=== PATIENT | female | born 1985 | race Caucasian/White ===

== ENCOUNTER 2017-01-05 01:50 | Emergency (ER) | payer SELFPAY ==
[~2017-01-05 01:50] MED LIST: AMOXIL500 M1 PO; AMOXIL500 MG PO; AMOXIL875 MG PO; ANAPROX DS550 MG PO; ANTIBIOTIC; BACTRIM DS TABL1 TAB PO; BUSPIRONE HCL10 M2 PO; CARAFATE1 G PO; CIPRO500 MG PO; DARVOCET-N 1001 EACH PO; DIFLUCAN150 MG PO; GYNE-LOTRIMIN45 GM VG; H PO; IBUPROFEN; LEVAQUIN250 MG PO; MACROBID 100 M100 M1 PO; MACROBID 100 M100 MG PO; MACROBID100 MG/CAP PO; METROGEL-VAGINA70 GM VG; MIDRIN CAPSULE1 CAP PO; NO MEDICATIONS; NO MEDS; NORCO 5-325 TA1 EACH PO; NORCO 5/325 TAB1 TAB PO; NORCO 5/3251 TAB PO; PEN-VEE K500 MG PO; PEPCID20 MG PO; PERCOCET 5/3251 TAB PO; PHENERGAN25 M1 PO; PREDNISONE20 MG PO; PRENATAL1 TAB; PROVERA10 MG PO; PYRIDIUM200 MG PO; VIBRAMYCIN100 MG PO; WAL-DRYL25 MG PO
[2017-01-05] MEDS ORDERED: ALEVE220 M3 PO (02:10)
[2017-01-05] MEDS ORDERED: HYDROCODON-ACE1 EA16 PO (04:22)
== END 2017-01-05 04:20 ==
LOC: EDMED 01:50
DX: F41.9 Anxiety disorder, unspecified (principal); R51 Headache; F17.200 Nicotine dependence, unspecified, uncomplicated; Z90.710 Acquired absence of both cervix and uterus
CPT/HCPCS: J1885